=== PATIENT | male | born 1975 | race Caucasian/White ===

== ENCOUNTER 2016-09-07 00:09 | Emergency (ER) | payer OTHER ==
[~2016-09-07] VITALS: Ht 182.9 cm; Wt 94.2 kg
[~2016-09-07 00:09] MED LIST: ALPRAZOLAM0.25 MG PO; ANDROGEL; Ambien PO; CELEXA; CELEXA10 MG PO; CELEXA20 MG PO; Celexa PO; NAPROSYN500 MG PO; NOHOMEMEDS; VALIUM5 MG PO; ZOLOFT25 MG PO
[2016-09-07] MEDS ORDERED: PERCOCET 5/31 TABLET PO (02:23)
[2016-09-07] MEDS ORDERED: VALIUM5 MG PO (02:23)
[2016-09-07] MEDS ORDERED: MEDROL DOSEPAK4 MG PO (02:23)
[2016-09-07 02:38] VITALS: BP 135/87
== END 2016-09-07 02:47 | disposition home or self-care (01) ==
LOC: EME 00:09 → EXP 00:09
DX: M54.16 Radiculopathy, lumbar region (principal)
CPT/HCPCS: 99281; 99284; J7512

== ENCOUNTER 2016-10-01 18:42 | Emergency (ER) | payer OTHER ==
[~2016-10-01] VITALS: Ht 182.9 cm; Wt 93.8 kg
[~2016-10-01 18:42] MED LIST changes: +MEDROL DOSEPAK4 MG PO; +PERCOCET 5/31 TABLET PO
[2016-10-01 19:51] LABS: CHLORIDE 107 mEq/L (99-109); MAGNESIUM 2.2 mg/dL (1.3-2.7); POTASSIUM 4.5 mEq/L (3.7-5.4); SODIUM 141 mEq/L (136-147)
[2016-10-01 19:52] LABS: GLUCOSE 98 mg/dL (70-99)
[2016-10-01 19:54] LABS: ANION GAP 9 MEQ/L (2-14)
[2016-10-01 19:56] LABS: GFR ESTIMATE (CALCULATED) > 59 mL/min/
[2016-10-01 19:57] LABS: UREA NITROGEN (BUN) 21 mg/dL (9-23)
[2016-10-01 20:16] LABS: TROP-I INTERPRETATION NEGATIVE; TROPONIN-I < 0.01 ng/mL (0.0-0.30)
[2016-10-01 21:46] VITALS: BP 133/98
== END 2016-10-01 21:47 | disposition home or self-care (01) ==
LOC: EME 18:42
PROVIDERS: Physician Assistant
DX: R00.2 Palpitations (principal)
CPT/HCPCS: 71010; 80048; 83735; 84484; 93005; 99281; 99285

== ENCOUNTER 2017-05-29 17:53 | Emergency (ER) | payer OTHER ==
[~2017-05-29] VITALS: Ht 182.9 cm; Wt 77.3 kg
[2017-05-29 20:27] VITALS: BP 105/74
== END 2017-05-29 20:28 | disposition home or self-care (01) ==
LOC: EXP 17:53 → EME 17:53 → EXP 20:28
DX: S09.90XA Unspecified injury of head, initial encounter (principal); W22.8XXA Striking against or struck by other objects, initial encounter; Y93.89 Activity, other specified; Z91.041 Radiographic dye allergy status
CPT/HCPCS: 70450; 99281; 99283